=== PATIENT | male | born 1960 | race Caucasian/White ===

== ENCOUNTER 2018-09-01 12:43 | Emergency (ER) | payer BC ==
[~2018-09-01] VITALS: Ht 167.6 cm; Wt 91.9 kg
[2018-09-01 13:13] VITALS: Ht 167.6 cm; Wt 91.9 kg
[2018-09-01] MEDS ORDERED: MECLIZINE 12.5 MG TAB PO ONE (14:00)
[2018-09-01] MEDS ORDERED: METF100010 PO (14:10)
[2018-09-01] MEDS ORDERED: FURO40TA4 PO (14:11)
[2018-09-01] MEDS ORDERED: LISI1TAB6 PO (14:11)
[2018-09-01] MEDS ORDERED: MECL-77 PO (14:11)
[2018-09-01] MEDS ORDERED: GLIP10TA14 PO (14:12)
[2018-09-01] MEDS ORDERED: SIMV20TA PO (14:13)
[2018-09-01] MEDS ORDERED: AMLO-147 PO (14:13)
[2018-09-01] MEDS ORDERED: HYDR-3671 PO (14:13)
[2018-09-01] MEDS ORDERED: CARV6.2579 PO (14:13)
--- NOTE | 2018-09-01 14:53 | ERD ---
ER Documentation Chief Complaint Chief Complaint c/o dizziness, generalized weakness, pt. states he feels heavy HPI This is a 58-year-old male with a history of hypertension diabetes who presents to the ER for evaluation of multiple complaints including dizziness, ear pain, and "my body feels heavy". The patient denies any fevers chills nausea vomiting chest pain or shortness of breath. He has not taken any medications to help with his symptoms and came to the ER today for evaluation. Patient does state that he has some pain in the left ear and describes as a achy pain and states that his dizziness is a room spinning sensation which is worse when he sits up ROS All systems reviewed and are negative except as per history of present illness. Medications Home Meds Reported Medications Hydralazine Hcl* (Hydralazine Hcl*) 25 Mg Tab, 25 MG PO TID PRN for BLOOD PRESSURE SUPPORT, #60 TAB 09/01/18 Carvedilol* (Carvedilol*) 6.25 Mg Tablet, 6.25 MG PO BID, #60 TAB 09/01/18 Amlodipine Besylate* (Amlodipine Besylate*) 10 Mg Tablet, 10 MG PO DAILY, #30 TAB 09/01/18 Simvastatin* (Zocor*) 20 Mg Tablet, 20 MG PO QHS, #30 TAB 09/01/18 Glipizide* (Glipizide*) 10 Mg Tablet, 10 MG PO BID, TAB 09/01/18 Furosemide* (Furosemide*) 40 Mg Tablet, 40 MG PO DAILY, TAB 09/01/18 Meclizine Hcl* (Meclizine Hcl*) 25 Mg Tablet, 25 MG PO Q6 PRN for DIZZINESS, TAB 09/01/18 Lisinopril/Hydrochlorothiazide (Lisinopril-Hctz 20-12.5 mg Tab) 1 Each Tablet, 1 EACH PO DAILY, TAB 09/01/18 Metformin Hcl* (Metformin Hcl*) 1,000 Mg Tablet, 1000 MG PO WITH BREAKFAST DINNE, #60 TAB 09/01/18 Allergies Allergies: Coded Allergies: No Known Allergy (Unverified , 09/01/18) PMhx/Soc History of Surgery: Yes (chest) Anesthesia Reaction: No Hx Neurological Disorder: No Hx Respiratory Disorders: No Hx Cardiac Disorders: Yes (htn, hld) Hx Psychiatric Problems: No Hx Miscellaneous Medical Probl: No Hx Alcohol Use: No Hx Substance Use: No Hx Tobacco Use: No Smoking Status: Never smoker Physical Exam Vitals Vital Signs Date Temp Pulse Resp B/P (MAP) Pulse Ox O2 O2 Flow FiO2 Time Delivery Rate 09/01/18 99.1 79 20 163/93 96 13:13 (116) Physical Exam INITIAL VITAL SIGNS: Reviewed by me GENERAL: The patient is well developed and appropriate for usual state of health in no apparent distress HEENT: Left external auditory canal with erythema, pupils equal, round, and reactive to light. EOMI. There is no scleral icterus. NECK: C-spine is soft and supple, there is no meningismus. There is no cervical lymphadenopathy. LUNGS: Clear to auscultation bilaterally. There are no rales, wheezes or rhonchi. HEART: Regular rate and rhythm, no murmurs, clicks, rubs or gallops. ABDOMEN: Soft, non-tender, non-distended. There are bowel sounds in all four quadrants. No rebound or guarding. EXTREMITIES: There is no peripheral cyanosis or edema. No focal swelling or erythema. NEUROLOGICAL: Sustainable left-sided horizontal nystagmus, the patient moves all four extremities with 5/5 strength. Cranial nerves II - XII are intact. Normal gait. Alert and oriented SKIN: There is no apparent rash or petechiae. HEME/LYMPHATIC: There is no evidence of excessive bruising or lymphedema. PSYCHIATRIC: The patient does not appear anxious or depressed. Result Diagram: 09/01/18 1338 09/01/18 1338 Results 24 hrs Laboratory Tests Test 09/01/18 13:38 White Blood Count 6.5 10^3/ul Red Blood Count 4.63 10^6/ul Hemoglobin 14.6 g/dl Hematocrit 44.7 % Mean Corpuscular Volume 96.5 fl Mean Corpuscular Hemoglobin 31.5 pg Mean Corpuscular Hemoglobin Concent 32.7 g/dl Red Cell Distribution Width 12.5 % Platelet Count 183 10^3/UL Mean Platelet Volume 10.3 fl Immature Granulocytes % 0.300 % Neutrophils % 53.8 % Lymphocytes % 33.2 % Monocytes % 8.9 % Eosinophils % 2.6 % Basophils % 1.2 % Nucleated Red Blood Cells % 0.0 /100WBC Immature Granulocytes # 0.020 10^3/ul Neutrophils # 3.5 10^3/ul Lymphocytes # 2.2 10^3/ul Monocytes # 0.6 10^3/ul Eosinophils # 0.2 10^3/ul Basophils # 0.1 10^3/ul Nucleated Red Blood Cells # 0.0 10^3/ul Prothrombin Time 12.5 Sec Prothrombin Time Ratio 1.0 INR International Normalized Ratio 0.92 Activated Partial Thromboplast Time 26.6 Sec Sodium Level 139 mmol/L Potassium Level 4.2 mmol/L Chloride Level 106 mmol/L Carbon Dioxide Level 26 mmol/L Anion Gap 7 Blood Urea Nitrogen 18 mg/dl Creatinine 0.85 mg/dl Est Glomerular Filtrat Rate mL/min > 60 mL/min Glucose Level 148 mg/dl Calcium Level 9.1 mg/dl Troponin I < 0.012 ng/ml Current Medications Medications Dose Sig/Guy Start Time Status Last (Trade) Ordered Route PRN Stop Time Admin Dose Reason Admin Meclizine 25 mg ONCE ONCE 09/01/18 DC 09/01/18 HCl PO 14:00 14:08 (Antivert) 09/01/18 14:01 Procedures/MDM EKG: Rate/Rhythm: [Normal Sinus Rhythm] QRS, ST, T-waves: [No changes consistent w/ acute ischemia] Impression: [No evidence of ischemia or arrhythmia] CT brain without: No acute intracranial hemorrhage or acute territorial infarct Mild age small vessel ischemic change in the periventricular white matter. This 58-year-old male presents to the ER for evaluation of multiple complaints including dizziness, earache, and body heaviness. On my exam the patient is afebrile, nontoxic-appearing and hemodynamically stable. The patient did have a nonsustainable nystagmus. His left external auditory canal was erythematous and he could have early otitis externa. The patient had a CT of the brain which is normal. Lab work is within normal limits and EKG is nonischemic. The patient was given meclizine in the ER and does state he is feeling better. He is likely suffering from vertigo will be discharged home with Cortisporin eardrops, and meclizine. He was given strict return precautions. The patient is comfortable with our plan of care Departure Diagnosis: Primary Impression: Vertigo Additional Impression: Left otitis externa Condition: LEAH Downey DO Sep 01, 2018 14:53
[2018-09-01] MEDS ORDERED: MECL12.574 PO (14:54)
[2018-09-01] MEDS ORDERED: NPH10OT LEFT EAR (14:54)
[2018-09-01 15:22] VITALS: BP 147/98; PULSE 62; RESP 14
== END 2018-09-01 15:24 | disposition home or self-care (01) ==
LOC: E/R 12:43
DX: H60.92 Unspecified otitis externa, left ear (principal); I10 Essential (primary) hypertension; E11.9 Type 2 diabetes mellitus without complications; Z79.84 Long term (current) use of oral hypoglycemic drugs
CPT/HCPCS: 70450; 80048; 84484; 85025; 85610; 85730; 93005; Z7502; Z7610